=== PATIENT | female | born 1995 | race African-American/Black ===

== ENCOUNTER 2020-05-20 20:43 | Emergency (ER) | payer SELFPAY ==
[~2020-05-20] VITALS: Ht 165 cm; Wt 78.1 kg
[~2020-05-20 20:43] MED LIST: AC500T; ACHD5005 PO; AMOX500C2; AZIT-21 PO; CEPH500T PO; CYCL10TA9 PO; GFCD10B PO; NAPR-1071 PO; PRD20T PO
[2020-05-20 22:20] LABS: BILIRUBIN,URINE NEGATIVE (NEGATIVE); CLARITY,URINE SL CLOUDY; COLOR,URINE YELLOW; GLUCOSE, URINE (UA) NEGATIVE (NEGATIVE); KETONES,URINE NEGATIVE (NEGATIVE); LEUKOCYTE ESTERASE ,URINE TRACE (NEGATIVE); NITRITE,URINE NEGATIVE (NEGATIVE); PH,URINE 7.5 (5-9); PROTEIN,URINE NEGATIVE (NEGATIVE)
[2020-05-20 22:27] LABS: BACTERIA,URINE NEGATIVE /HPF; WBC,URINE RARE /HPF
--- NOTE | 2020-05-20 22:55 | ED Headache ---
General Chief Complaint: Head/Cervical Problems Stated Complaint: MIGRAINE / FACIAL PAIN Nursing Triage Note: TO ED VIA POV AND AMBULATORY TO ROOM 8 WITH C/O MIGRAINE FOR APPROX 2 WEEKS. NOTHING MAKES BETTER, IBUPROFEN NOT HELPING. HX OF MIGRAINES, BUT INABILITY TO CONTROL LATELY. C/O NAUSEA AND RECENT DIZZINESS THAT IS NEW. DENIES COVID SX OR EXPOSURE. Nursing Sepsis Screen: No Definite Risk Source: patient Exam Limitations: no limitations History of Present Illness Date Seen by Provider: May 20, 2020 Time Seen by Provider: 22:00 Initial Comments This is a well appearing 24 yo female with history of chronic migraines. States she has been having intermittent migraines for 2 weeks. Normally she takes Ibuprofen which has helped in past. Reports mild dizziness with rapid movements and intermittent nausea. Reports no nausea at this time. Concerned she may be even though she checked urine at home earlier this week and was negative. Denies fever, chills, cough, shortness of breath, nausea/vomiting, abdominal pain, or dysuria. Allergies and Home Medications Allergies Coded Allergies: No Known Drug Allergies (Unverified Allergy, Mild, 07/04/09) Home Medications Cephalexin 500 Mg Tablet, 500 MG PO TID Prescribed by: PHOENIX BENITES on 06/11/15 042 Cyclobenzaprine HCl 10 Mg Tablet, 10 MG PO Q8H PRN for SPASMS Prescribed by: PHOENIX BENITES on 06/09/152346 Hydrocodone Bit/Acetaminophen 1 Each Tablet, 1-2 EACH PO Q6H PRN for PAIN Prescribed by: PHOENIX BENITES on 06/11/15 041 Naproxen 500 Mg Tablet, 500 MG PO BID Prescribed by: PHOENIX BENITES on 06/09/152346 Prednisone 20 Mg Tab, 40 MG PO DAILY Prescribed by: PHOENIX BENITES on 06/09/152346 Patient Home Medication List Home Medication List Reviewed: Yes Review of Systems Review of Systems Constitutional: see HPI Eyes: Photophobia Ears, Nose, Mouth, Throat: no symptoms reported Respiratory: no symptoms reported Cardiovascular: no symptoms reported Gastrointestinal: no symptoms reported Genitourinary: no symptoms reported LMP: Apr 10, 2020 Musculoskeletal: no symptoms reported Skin: no symptoms reported Psychiatric/Neurological: See HPI Past [id number] Hx Patient Social History Alcohol Use: Denies Use Smoking Status: Never a Smoker Recent Infectious Disease Expo: No Immunizations Up To Date PED Vaccines UTD: Yes Seasonal Allergies Seasonal Allergies: No Past Medical History Surgeries: No Respiratory: No Cardiac: No Neurological: Yes Headaches /Migraines Reproductive Disorders: No Sexually Transmitted Disease: No HIV/AIDS: No Genitourinary: No Gastrointestinal: No Musculoskeletal: No Endocrine: No HEENT: No Cancer: No Psychosocial: Yes Anxiety Integumentary: No Blood Disorders: No Adverse Reaction/Blood Tranf: No Family Medical History No Pertinent Family Hx Physical Exam Vital Signs Vital Signs - First Documented 05/20/20 05/20/20 21:49 23:40 Temp 36.1 Pulse 90 Resp 16 B/P (MAP) 107/84 (92) Pulse Ox 96 O2 Delivery Room Air Capillary Refill : Less Than 3 Seconds Height, Weight, BMI Height: 5'6" Weight: 145lbs. oz. [id number]; 28.00 BMI Method:Stated General Appearance: WD/WN, no apparent distress HEENT: PERRL/EOMI, normal ENT inspection Neck: full range of motion, normal inspection Cardiovascular: regular rate, rhythm, no murmur Respiratory: lungs clear, normal breath sounds Gastrointestinal: normal bowel sounds, non tender, soft Extremities: normal range of motion, normal inspection Psychiatric: alert, oriented x 3 Crainal Nerves: normal hearing, normal speech Coordination/Gait: normal gait Motor/Sensory: no motor deficit, no sensory deficit Skin: normal color, warm/dry Progress/Results/Core Measures Results/Orders Lab Results Laboratory Tests Test 05/20/20 22:00 Range/Units Urine Color YELLOW Urine Clarity SL CLOUDY Urine pH 7.5 5-9 Urine Specific Gary 1.015 L 1.016-1.022 Urine Protein NEGATIVE NEGATIVE Urine Glucose (UA) NEGATIVE NEGATIVE Urine Ketones NEGATIVE NEGATIVE Urine Nitrite NEGATIVE NEGATIVE Urine Bilirubin NEGATIVE NEGATIVE Urine Urobilinogen 0.2 < = 1.0 MG/DL Urine Leukocyte Esterase TRACE H NEGATIVE Urine RBC (Auto) NEGATIVE NEGATIVE Urine RBC NONE /HPF Urine WBC RARE /HPF Urine Squamous Epithelial Cells 5-10 /HPF Urine Crystals NONE /LPF Urine Bacteria NEGATIVE /HPF Urine Casts NONE /LPF Urine Mucus SMALL H /LPF Urine Culture Indicated NO My Orders Orders - [employer]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 examined and in no acute distress. Orders placed for urine preg and UA. Will give Toradol 60mg IM for pain. Preg neg. UA unremarkable. Reported improvement of symptoms with Toradol. Reviewed discharge plan and agreeable with instructions. To follow up with PCP for persistent symptoms. Departure Impression Primary Impression: Migraine Disposition: 01 HOME, SELF-CARE Condition: Improved Departure-Patient Inst. Decision time for Depature: 22:54 Referrals: [facility] (PCP/Family) Primary Care Physician Patient Instructions: Migraines (DC) Add. Discharge Instructions: Discharge plan: 1. Discharge home. 2. Drink plenty of fluids. 3. Continue Tylenol/Ibuprofen as needed for pain. 4. Follow up with your primary care provider for persistent migraines. All discharge instructions reviewed with patient and/or family. Voiced understanding. KRYSTIN [employer] SALES MANAGER May 20, 2020 22:55
[2020-05-20] MEDS ORDERED: KETOROLAC 60 MG/2 ML VIAL IM ONE (23:00)
[2020-05-20 23:40] VITALS: BP 112/59
== END 2020-05-20 23:40 | disposition home or self-care (01) ==
LOC: EDUNIT# 20:43 → ER 20:49
DX: G43.709 Chronic migraine without aura, not intractable, without status migrainosus (principal); Z79.52 Long term (current) use of systemic steroids
CPT/HCPCS: 81000; 84703; 99284